=== PATIENT | female | born 1970 | race Caucasian/White ===

== ENCOUNTER 2023-01-13 13:56 | Emergency (ER) | payer OTHER | END 2023-01-13 15:00 | disposition home or self-care (01) | LOC: FB.ED 13:56 | DX: K04.7 Periapical abscess without sinus (principal); K02.9 Dental caries, unspecified | CPT/HCPCS: 99282 ==

== ENCOUNTER 2023-01-14 08:31 | Emergency (ER) | payer OTHER ==
[2023-01-14] MEDS ORDERED: Clindamycin Phosphate 600 MG in Dextrose 5% in Water 50 ML IV ONE ×2 (09:20)
[2023-01-14] MEDS ORDERED: Ketorolac 30 MG/ML SDV IVPUSH ONE (09:22)
[2023-01-14] MEDS ORDERED: Amoxicillin/Clavulanate K 875-125 MG Tab PO ONE (09:23)
[2023-01-14] MEDS ORDERED: Clindamycin in 0.9 % Sod Chlor 600 MG in Premix Bag 1 BAG IV ONE ×2 (09:25)
[2023-01-14] MEDS: Sodium Chloride 0.9% 10 ML Syringe FLUSH PRN ×3 (09:30→09:58)
[2023-01-14] MEDS ORDERED: traMADol 50 MG Tab PO ONE (10:01)
== END 2023-01-14 10:18 | disposition home or self-care (01) ==
LOC: FB.ED 08:31
DX: K04.7 Periapical abscess without sinus (principal); Z72.0 Tobacco use
CPT/HCPCS: 96374; 96375; 99282-25; A9270-GY; J1885; J3490